=== PATIENT | male | born 1980 | race Caucasian/White ===

== ENCOUNTER 2016-11-14 01:38 | Inpatient (IN) ==
[2016-11-14] MEDS ORDERED: LACTATED RINGERS 1,000 ML IV STA (01:49)
[2016-11-14] MEDS ORDERED: DIPH/TET/ACEL PERT BOOSTER VACCINE 0.5 ML VIAL IM ONE (01:49)
[2016-11-14 01:55] LABS: Basophils % 0.6 % (0.0-0.8); Eosinophils # 0.2 10*3/uL (0.0-0.87); Hematocrit 42.8 VOL% (42.0-52.0); Hemoglobin 14.3 GM/DL (14.0-18.0); Immature Granulocytes % 0.2 %; Immature Granulocytes Absolute 0.01 #; Lymphocytes # 2.3 10*3/uL (1.4-4.0); Lymphocytes % 47.6 % (21.2-54.2); Mean Corpuscular HGB Conc 33.4 GM/DL (32-36); Mean Corpuscular Hemoglobin 31 PG (27-34); Mean Corpuscular Volume 92.2 FL (87-102); Mean Platelet Volume 9.7 FL (9.6-12.0); Monocytes # 0.3 10*3/uL (0.11-0.8); Monocytes % 5.6 % (1.7-12.7); Platelet Count 223 T/CUMM (130-400); Red Blood Count 4.64 MC/CUMM (3.8-5.5); Red Cell Distribution Width 11.9 % (9.3-17.3); White Blood Count 4.8 T/CUMM (4-12)
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
[2016-11-14 02:16] LABS: ABG Base Excess -9.1 MMOL/L (-2.5-2.5); ABG HCO3 17.3 MMOL/L (20-26); ABG Oxygen Saturation 99.8 % (95-100); ABG PCO2 35.2 MM HG (35-48); ABG PH 7.287 (7.35-7.45); ABG TCO2 14.9 MMOL/L (23-27)
[2016-11-14 02:24] LABS: Alanine Aminotransferase 266 U/L (16-61); Albumin 4.1 G/DL (3.4-5.0); Alkaline Phosphatase 46 U/L (45-117); Amylase 53 U/L (25-115); Aspartate Amino Transferase 307 U/L (0-37); Bilirubin,Total < 0.39 MG/DL (0.2-1.0); Blood Urea Nitrogen 13 MG/DL (7-18); Calcium 8.1 MG/DL (8.5-10.1); Glucose 145 MG/DL (74-106); Osmolality,Calculated 294.4 MOS/KG (273-304); Potassium 3.4 MMOL/L (3.5-5.1); Sodium 147 MMOL/L (136-145)
[2016-11-14 02:26] LABS: Lactic Acid 4.3 MMOL/L (0.4-2.0)
[2016-11-14 02:30] LABS: PT Patient Result 10.2 SECS; Partial Thromboplastin Time 21.5 SECS (0-40)
[2016-11-14] MEDS ORDERED: PROPOFOL 1,000 MG/100 ML BOTTLE IV SCH ×2 (02:30→04:00)
[2016-11-14] MEDS ORDERED: ceFAZolin 1,000 MG VIAL ONE (02:34)
[2016-11-14] MEDS ORDERED: SODIUM BICARBONATE 50 MEQ/50 ML VIAL IV ONE (02:39)
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
[2016-11-14] MEDS ORDERED: SODIUM CHLORIDE 0.9% 250 ML IV PRN (03:17)
[2016-11-14] MEDS ORDERED: MIDAZOLAM 2 MG/2 ML VIAL ONE (03:20)
[2016-11-14] MEDS ORDERED: fentaNYL 100 MCG/2 ML VIAL ONE (03:20)
[2016-11-14] MEDS ORDERED: SEVOFLURANE 1 UNIT/15 MINUTE INH ONE (03:20)
[2016-11-14] MEDS ORDERED: SODIUM CHLORIDE 0.9% 1,000 ML IV ONE (03:21)
[2016-11-14] MEDS: PROPOFOL 1,000 MG/100 ML BOTTLE IV SCH ×8 (03:58→22:24)
[2016-11-14] MEDS: LACTATED RINGERS 1,000 ML IV SCH ×3 (04:00→23:45)
[2016-11-14 04:40] LABS: Basophils % 0.1 % (0.0-0.8); Eosinophils % 0.3 % (0.00-10.9); Hematocrit 38.3 VOL% (42.0-52.0); Hematocrit 38.5 VOL% (42.0-52.0); Hemoglobin 13.1 GM/DL (14.0-18.0); Hemoglobin 13.2 GM/DL (14.0-18.0); Immature Granulocytes % 0.6 %; Immature Granulocytes Absolute 0.07 #; Lymphocytes # 1.1 10*3/uL (1.4-4.0); Lymphocytes % 8.7 % (21.2-54.2); Mean Corpuscular HGB Conc 34.2 GM/DL (32-36); Mean Corpuscular Hemoglobin 31 PG (27-34); Mean Corpuscular Volume 90.1 FL (87-102); Mean Platelet Volume 9.8 FL (9.6-12.0); Monocytes # 0.6 10*3/uL (0.11-0.8); Neutrophils # 10.7 10*3/uL (1.4-7.4); Neutrophils % 85.3 % (38.7-73.9); Platelet Count 138 T/CUMM (130-400); Red Blood Count 4.25 MC/CUMM (3.8-5.5); Red Cell Distribution Width 12.3 % (9.3-17.3); White Blood Count 12.5 T/CUMM (4-12)
[2016-11-14] MEDS: HYDROmorphone 2 MG/1 ML VIAL IV PRN ×5 (04:55→22:17)
[2016-11-14 04:57] LABS: INR 1.1; PT Patient Result 11.5 SECS
[2016-11-14 05:12] LABS: Lactic Acid 3.5 MMOL/L (0.4-2.0)
[2016-11-14 05:24] LABS: Bilirubin,Total 0.6 MG/DL (0.2-1.0); Calcium 6.6 MG/DL (8.5-10.1); Osmolality,Calculated 300.7 MOS/KG (273-304); Total Protein 4.8 G/DL (6.4-8.3)
[2016-11-14] MEDS ORDERED: LACTATED RINGERS 1,000 ML IV ONE (05:49)
[2016-11-14 05:51] LABS: ABG Base Excess -7.1 MMOL/L (-2.5-2.5); ABG HCO3 18.7 MMOL/L (20-26); ABG Oxygen Saturation 99.6 % (95-100); ABG PCO2 41.2 MM HG (35-48); ABG PH 7.281 (7.35-7.45); ABG TCO2 17.2 MMOL/L (23-27)
[2016-11-14 06:42] LABS: Apearance,Urine ND (Clear); Bilirubin,Urine ND mg/dL (Negative); Blood, Urine ND mg/dL (Negative); Glucose,Urine (UA) ND mg/dL (Negative); Ketones,Urine ND mg/dL (Negative); Protein,Urine ND MG/DL; Urine Color ND (Yellow)
[2016-11-14 06:50] LABS: Amorphous Crystals,Urine Many /HPF (Few); Apearance,Urine CLOUDY (Clear); Bilirubin,Urine Negative (Negative); Blood, Urine Negative (Negative); Glucose,Urine (UA) Negative (Negative); Ketones,Urine Negative (Negative); Nitrite,Urine Negative (Negative); Protein,Urine Negative; Urine Color Amber (Yellow); Urine Specific Gravity 1.019 (1.001-1.035); Urine Urobilinogen < 2.0 EU/DL (0.2-1.0)
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
[2016-11-14 09:10] LABS: Hematocrit 37.2 VOL% (42.0-52.0); Hemoglobin 12.5 GM/DL (14.0-18.0)
[2016-11-14] MEDS: PANTOPRAZOLE 40 MG VIAL IV SCH (09:19)
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
--- NOTE | 2016-11-14 11:46 | XRay Report ---
History: Shortness of breath Date: 11/14/2016 at 3:18 AM Study: Chest x-ray AP portable Comparison exam: 11/14/2016 at 1:41 AM The endotracheal tube is well-positioned. The cardiomediastinal silhouette is unchanged. The pulmonary vasculature is not engorged. The lungs are generally clear for shallow breath. There is no gross pleural effusion. The osseous structures are unchanged. Surgical drain is noted over the partially visualized upper central abdomen. Impression: The endotracheal tube is well-positioned. The lungs remain generally clear. PROCEDURE INTERPRETED AT [facility] DEPARTMENT OF RADIOLOGY Final Report Signed by: Dr. Vivienne Riley
[2016-11-14 15:18] LABS: Hematocrit 34.9 VOL% (42.0-52.0); Hemoglobin 12.1 GM/DL (14.0-18.0)
[2016-11-14] MEDS ORDERED: SUCCINYLCHOLINE 200 MG/10 ML VIAL ONE (16:46)
[2016-11-14] MEDS ORDERED: ROCURONIUM 100 MG/10 ML VIAL IV ONE (16:46)
[2016-11-14] MEDS ORDERED: LIDOCAINE 100 MG/5 ML SYRINGE ONE (16:46)
[2016-11-14] MEDS ORDERED: ETOMIDATE 20 MG/10 ML VIAL IV ONE (16:46)
[2016-11-14 20:57] LABS: Hematocrit 34.7 VOL% (42.0-52.0)
[2016-11-15] MEDS: PROPOFOL 1,000 MG/100 ML BOTTLE IV SCH ×4 (00:25→07:13)
[2016-11-15] MEDS: HYDROmorphone 2 MG/1 ML VIAL IV PRN ×4 (02:57→10:33)
[2016-11-15 04:05] LABS: ABG Base Excess 2.3 MMOL/L (-2.5-2.5); ABG HCO3 25.8 MMOL/L (20-26); ABG PCO2 36.4 MM HG (35-48); ABG PH 7.469 (7.35-7.45); ABG PO2 261.2 MM HG (80-95)
[2016-11-15 04:25] LABS: Basophils % 0.1 % (0.0-0.8); Eosinophils # 0.1 10*3/uL (0.0-0.87); Eosinophils % 1.3 % (0.00-10.9); Hematocrit 31.7 VOL% (42.0-52.0); Hemoglobin 11.1 GM/DL (14.0-18.0); Immature Granulocytes % 0.3 %; Immature Granulocytes Absolute 0.02 #; Lymphocytes # 0.7 10*3/uL (1.4-4.0); Mean Corpuscular Hemoglobin 31 PG (27-34); Mean Corpuscular Volume 87.6 FL (87-102); Mean Platelet Volume 10.1 FL (9.6-12.0); Monocytes # 0.8 10*3/uL (0.11-0.8); Monocytes % 9.9 % (1.7-12.7); Neutrophils # 6.3 10*3/uL (1.4-7.4); Neutrophils % 79.4 % (38.7-73.9); Platelet Count 121 T/CUMM (130-400); Red Blood Count 3.62 MC/CUMM (3.8-5.5); Red Cell Distribution Width 12.4 % (9.3-17.3); White Blood Count 7.9 T/CUMM (4-12)
[2016-11-15 04:47] LABS: Albumin 2.7 G/DL (3.4-5.0); Bilirubin,Total 1.1 MG/DL (0.2-1.0); Calcium 7.4 MG/DL (8.5-10.1); Osmolality,Calculated 291.4 MOS/KG (273-304); Potassium 3.7 MMOL/L (3.5-5.1); Total Protein 4.4 G/DL (6.4-8.3)
[2016-11-15] MEDS: LACTATED RINGERS 1,000 ML IV SCH ×4 (06:27→23:51)
--- NOTE | 2016-11-15 07:39 | XRay Report ---
Portable chest Date: 04/17/2017 Clinical history: Ventilator Comparison: 11/14/2016 Technique: Portable AP sitting chest Findings: The heart is smaller in size with endotracheal tube and nasogastric tube in satisfactory position. Progressive parenchymal findings at the right lung base with small right pleural effusion. Postoperative findings in the upper abdomen. Impression: Support devices in satisfactory position. Progressive atelectasis/infiltration/edema at the right lung base with small right pleural effusion. Postoperative findings in the abdomen. PROCEDURE INTERPRETED AT [facility] DEPARTMENT OF RADIOLOGY Final Report Signed by: Dr. Kenyatta Orantes
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
[2016-11-15] MEDS: PANTOPRAZOLE 40 MG VIAL IV SCH (08:28)
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
--- NOTE | 2016-11-15 09:24 | Anesthesia ---
Anesthesia Post OP - Post Ansesthetic Evaluation Patient seen in post op: Yes Resp: other (Vent) CV: within normal limits Mental: within normal limits Temp: within normal limits [id number]: within normal limits Nausea and Vomiting: within normal limits Pain: within normal limits
[2016-11-15] MEDS ORDERED: NALOXONE 0.4 MG/ML VIAL IV PRN (09:36)
[2016-11-15] MEDS: HYDROmorphone PCA 30 MG/30 ML SYRINGE IV SCH (13:07)
[2016-11-16] MEDS: LORazepam 2 MG/1 ML VIAL IV PRN (02:39)
[2016-11-16 03:51] LABS: Apearance,Urine CLEAR (Clear); Bilirubin,Urine Negative (Negative); Blood, Urine Small mg/dL (Negative); Glucose,Urine (UA) Negative (Negative); Hyaline Casts,Urine 1 /LPF (0-3); Ketones,Urine Negative (Negative); Mucus,Urine Occasional /LPF (Occasional); Nitrite,Urine Negative (Negative); Protein,Urine Negative; RBC,Urine 1 /HPF (0-4); Urine Color Yellow (Yellow); Urine Urobilinogen < 2.0 EU/DL (0.2-1.0); WBC,Urine 3 /HPF (0-6)
[2016-11-16 05:05] LABS: Basophils % 0.2 % (0.0-0.8); Eosinophils % 0.4 % (0.00-10.9); Hematocrit 27.4 VOL% (42.0-52.0); Hemoglobin 9.2 GM/DL (14.0-18.0); Immature Granulocytes % 0.5 %; Immature Granulocytes Absolute 0.05 #; Lymphocytes # 0.6 10*3/uL (1.4-4.0); Lymphocytes % 5.8 % (21.2-54.2); Mean Corpuscular HGB Conc 33.6 GM/DL (32-36); Mean Corpuscular Hemoglobin 31 PG (27-34); Mean Corpuscular Volume 92.3 FL (87-102); Mean Platelet Volume 10.5 FL (9.6-12.0); Monocytes % 9.1 % (1.7-12.7); Neutrophils # 9.3 10*3/uL (1.4-7.4); Platelet Count 107 T/CUMM (130-400); Red Blood Count 2.97 MC/CUMM (3.8-5.5); Red Cell Distribution Width 12.3 % (9.3-17.3); White Blood Count 11.1 T/CUMM (4-12)
[2016-11-16 05:33] LABS: Albumin 2.6 G/DL (3.4-5.0); Bilirubin,Total 1.5 MG/DL (0.2-1.0); Calcium 7.6 MG/DL (8.5-10.1); Osmolality,Calculated 285.8 MOS/KG (273-304); Potassium 3.8 MMOL/L (3.5-5.1); Total Protein 4.7 G/DL (6.4-8.3)
[2016-11-16] MEDS: LACTATED RINGERS 1,000 ML IV SCH (08:01)
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
[2016-11-16] MEDS: PANTOPRAZOLE 40 MG VIAL IV SCH (09:03)
--- NOTE | 2016-11-16 10:03 | Physician Query Form ---
CLICK EDIT DOCUMENT TO SELECT QUERY ANSWER --> OK --> SIGN Tatyana Arredondo RN Clinical Senior Sas Developer W) [phone] (f) [phone] [email or web address]: Make your selection(s) from the choices in EACH section by typing an "x" and enter comments in the comment section. Please use your independent medical judgment in providing your response. This request does not imply that any particular answer is desired or expected. CLINICAL INDICATORS: (Providers should not edit this section) Based on documentation in ER record of "Pt appears very pale. Patient's blood pressure was 82 over palpable. Patient was diaphoretic pale and shocky state. Patient got 2 units of O- blood with a mass transfusion protocol initiated for surgery". Pt. received fluid boluses of Lactated Ringer's. Blood pressure of 86/ 39. Please clarify which, if any, of the following is the etiology of the above symptoms and treatment rendered: ( ) Septic shock ( ) Hypovolemic shock ( ) Cardiogenic shock (x) Hemorrhagic shock ( ) Traumatic shock ( ) Shock due to, please specify etiology: ( ) Shock, unknown etiology ( ) Drug induced, please specify substance: ( ) Iatrogenic Hypotension ( ) Orthostatic Hypotension ( ) Hypotension, unknown etiology ( ) Other, please specify: ( ) Clinically unable to determine COMMENTS: Use of terms such as suspected, likely, or probable (associated with a specific diagnosis that is being evaluated, monitored, or treated as if it exists) are acceptable and can be restated in the discharge summary if not ruled out. MTDD
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
[2016-11-16 11:00] LABS: Basophils % 0.2 % (0.0-0.8); Eosinophils # 0.1 10*3/uL (0.0-0.87); Eosinophils % 1.3 % (0.00-10.9); Hematocrit 26.3 VOL% (42.0-52.0); Hemoglobin 8.8 GM/DL (14.0-18.0); Immature Granulocytes % 0.4 %; Immature Granulocytes Absolute 0.04 #; Lymphocytes # 0.8 10*3/uL (1.4-4.0); Lymphocytes % 8.9 % (21.2-54.2); Mean Corpuscular HGB Conc 33.5 GM/DL (32-36); Mean Corpuscular Hemoglobin 31 PG (27-34); Mean Corpuscular Volume 92.3 FL (87-102); Mean Platelet Volume 10.3 FL (9.6-12.0); Monocytes # 0.9 10*3/uL (0.11-0.8); Monocytes % 9.5 % (1.7-12.7); Neutrophils # 7.4 10*3/uL (1.4-7.4); Neutrophils % 79.7 % (38.7-73.9); Platelet Count 103 T/CUMM (130-400); Red Blood Count 2.85 MC/CUMM (3.8-5.5); White Blood Count 9.3 T/CUMM (4-12)
[2016-11-16] MEDS ORDERED: ONDANSETRON 4 MG/2 ML VIAL ONE (14:35)
[2016-11-16] MEDS ORDERED: ONDANSETRON 4 MG/2 ML VIAL IV PRN (14:41)
[2016-11-16 16:02] LABS: Hemoglobin 8.8 GM/DL (14.0-18.0)
[2016-11-16] MEDS ORDERED: PROMETHAZINE 25 MG/1 ML VIAL IM PRN (18:04)
[2016-11-16] MEDS: HYDROmorphone PCA 30 MG/30 ML SYRINGE IV SCH (18:49)
[2016-11-16] MEDS: DEXT 5% NACL 0.45% KCL 20 MEQ 20 MEQ/1,000 ML BAG IV SCH (18:50)
[2016-11-17 02:54] LABS: Basophils % 0.3 % (0.0-0.8); Eosinophils # 0.2 10*3/uL (0.0-0.87); Eosinophils % 2.8 % (0.00-10.9); Hematocrit 24.9 VOL% (42.0-52.0); Hemoglobin 8.2 GM/DL (14.0-18.0); Immature Granulocytes % 0.4 %; Immature Granulocytes Absolute 0.03 #; Lymphocytes # 0.7 10*3/uL (1.4-4.0); Lymphocytes % 9.4 % (21.2-54.2); Mean Corpuscular HGB Conc 32.9 GM/DL (32-36); Mean Corpuscular Hemoglobin 31 PG (27-34); Mean Corpuscular Volume 92.6 FL (87-102); Mean Platelet Volume 10.3 FL (9.6-12.0); Monocytes # 0.7 10*3/uL (0.11-0.8); Monocytes % 10.2 % (1.7-12.7); Neutrophils # 5.4 10*3/uL (1.4-7.4); Neutrophils % 76.9 % (38.7-73.9); Platelet Count 106 T/CUMM (130-400); Red Blood Count 2.69 MC/CUMM (3.8-5.5); Red Cell Distribution Width 11.9 % (9.3-17.3)
[2016-11-17] MEDS: DEXT 5% NACL 0.45% KCL 20 MEQ 20 MEQ/1,000 ML BAG IV SCH ×2 (02:55→08:00)
[2016-11-17 03:23] LABS: Albumin 2.4 G/DL (3.4-5.0); Bilirubin,Total 1.1 MG/DL (0.2-1.0); Calcium 7.6 MG/DL (8.5-10.1); Potassium 3.7 MMOL/L (3.5-5.1); Total Protein 4.7 G/DL (6.4-8.3)
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
[2016-11-17] MEDS: PANTOPRAZOLE 40 MG VIAL IV SCH (10:21)
[2016-11-17] MEDS: HYDROmorphone 2 MG/1 ML VIAL IV PRN ×2 (13:05→16:55)
[2016-11-17] MEDS: LORazepam 2 MG/1 ML VIAL IV PRN (18:34)
[2016-11-18 05:28] LABS: Basophils % 0.1 % (0.0-0.8); Eosinophils # 0.3 10*3/uL (0.0-0.87); Eosinophils % 3.8 % (0.00-10.9); Hematocrit 23.7 VOL% (42.0-52.0); Hemoglobin 7.9 GM/DL (14.0-18.0); Immature Granulocytes % 0.3 %; Immature Granulocytes Absolute 0.02 #; Lymphocytes # 0.6 10*3/uL (1.4-4.0); Lymphocytes % 8.7 % (21.2-54.2); Mean Corpuscular HGB Conc 33.3 GM/DL (32-36); Mean Corpuscular Hemoglobin 31 PG (27-34); Mean Corpuscular Volume 92.2 FL (87-102); Mean Platelet Volume 9.7 FL (9.6-12.0); Monocytes # 0.7 10*3/uL (0.11-0.8); Monocytes % 10.3 % (1.7-12.7); Neutrophils # 5.2 10*3/uL (1.4-7.4); Neutrophils % 76.8 % (38.7-73.9); Platelet Count 145 T/CUMM (130-400); Red Blood Count 2.57 MC/CUMM (3.8-5.5); Red Cell Distribution Width 11.9 % (9.3-17.3); White Blood Count 6.8 T/CUMM (4-12)
[2016-11-18] MEDS: HYDROmorphone 2 MG/1 ML VIAL IV PRN ×3 (05:36→18:39)
[2016-11-18 06:06] LABS: Albumin 2.5 G/DL (3.4-5.0); Bilirubin,Total 1.1 MG/DL (0.2-1.0); Osmolality,Calculated 285.8 MOS/KG (273-304); Potassium 3.8 MMOL/L (3.5-5.1); Total Protein 5.1 G/DL (6.4-8.3)
[2016-11-18] MEDS: PANTOPRAZOLE 40 MG VIAL IV SCH (08:04)
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
[2016-11-18] MEDS: FONDAPARINUX 2.5 MG/0.5 ML SYRINGE SUBCUT SCH (09:32)
[2016-11-18] MEDS: POLYETHYLENE GLYCOL POWDER 17 GM PACK PO SCH (09:32)
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
[2016-11-18] MEDS: LORazepam 2 MG/1 ML VIAL IV PRN (21:00)
[2016-11-19] MEDS: HYDROmorphone 2 MG/1 ML VIAL IV PRN ×6 (00:06→22:21)
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
[2016-11-19 08:45] LABS: Basophils % 0.1 % (0.0-0.8); Eosinophils # 0.3 10*3/uL (0.0-0.87); Eosinophils % 4.5 % (0.00-10.9); Hematocrit 24.2 VOL% (42.0-52.0); Hemoglobin 8.2 GM/DL (14.0-18.0); Immature Granulocytes % 0.4 %; Immature Granulocytes Absolute 0.03 #; Lymphocytes # 0.6 10*3/uL (1.4-4.0); Lymphocytes % 9.3 % (21.2-54.2); Mean Corpuscular HGB Conc 33.9 GM/DL (32-36); Mean Corpuscular Hemoglobin 30 PG (27-34); Mean Corpuscular Volume 89.6 FL (87-102); Mean Platelet Volume 9.1 FL (9.6-12.0); Monocytes # 0.9 10*3/uL (0.11-0.8); Monocytes % 13.2 % (1.7-12.7); Neutrophils # 4.9 10*3/uL (1.4-7.4); Neutrophils % 72.5 % (38.7-73.9); Platelet Count 173 T/CUMM (130-400); Red Cell Distribution Width 12.1 % (9.3-17.3); White Blood Count 6.7 T/CUMM (4-12)
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
[2016-11-19 09:15] LABS: Albumin 2.6 G/DL (3.4-5.0); Bilirubin,Total 1.7 MG/DL (0.2-1.0); Calcium 8.1 MG/DL (8.5-10.1); Osmolality,Calculated 276.5 MOS/KG (273-304); Potassium 3.7 MMOL/L (3.5-5.1); Total Protein 5.5 G/DL (6.4-8.3)
--- NOTE | 2016-11-19 09:45 | XRay Report ---
XR chest 2V Date: 11/19/2016 7:54 AM History: Cough, shortness of breath Comparison: 11/15/2016 Technique: PA and lateral chest Findings: The heart appears large in size on this expiratory film. Interval removal of the endotracheal tube and nasogastric tube. Progressive parenchymal findings at the lung bases with small pleural effusions. Gaseous distention of the bowel with postoperative findings and surgical drains. Stable mediastinum and osseous structures. Impression: Progressive bibasilar atelectasis/infiltration with small pleural effusions. Expiratory chest. Probable post operative ileus with surgical drains. PROCEDURE INTERPRETED AT [facility] DEPARTMENT OF RADIOLOGY Final Report Signed by: Dr. Kenyatta Orantes
[2016-11-19] MEDS: PANTOPRAZOLE 40 MG VIAL IV SCH (10:12)
[2016-11-19] MEDS: FONDAPARINUX 2.5 MG/0.5 ML SYRINGE SUBCUT SCH (10:17)
[2016-11-19] MEDS: POLYETHYLENE GLYCOL POWDER 17 GM PACK PO SCH (10:18)
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
[2016-11-19] MEDS: LEVOFLOXACIN 750 MG TABLET PO SCH (16:34)
[2016-11-20] MEDS: HYDROmorphone 2 MG/1 ML VIAL IV PRN ×3 (04:00→18:52)
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
[2016-11-20] MEDS: POLYETHYLENE GLYCOL POWDER 17 GM PACK PO SCH (09:50)
[2016-11-20] MEDS: PANTOPRAZOLE 40 MG VIAL IV SCH (09:51)
[2016-11-20] MEDS: LEVOFLOXACIN 750 MG TABLET PO SCH (09:51)
[2016-11-20] MEDS: FONDAPARINUX 2.5 MG/0.5 ML SYRINGE SUBCUT SCH (09:56)
--- NOTE | 2016-11-20 10:01 | XRay Report ---
History is follow-up atelectasis Comparison 11/19/2016 The heart is normal in size There remains minimal discoid atelectasis lung bases with slight improved aeration in the right base in the interval. No consolidative infiltrates seen Impression: Mild improvement with mild residual discoid atelectasis in the lung bases PROCEDURE INTERPRETED AT [facility] DEPARTMENT OF RADIOLOGY Final Report Signed by: Dr. Esme Antunez
--- NOTE | 2016-11-20 10:53 | Event Note ---
Patient is doing well. Tolerating regular diet. His breathing difficulties have resolved. This is being managed by pulmonary. He is afebrile and his vital signs are stable. Not had a bowel movement. His abdomen is soft and appropriately tender in the DESHAWN drains have minimal output. We'll give him a Dulcolax suppository to help with his bowel movement. Continue current care.
[2016-11-20] MEDS: BISACODYL 10 MG SUPP RECTAL SCH ×2 (19:03→21:39)
[2016-11-21] MEDS: HYDROmorphone 2 MG/1 ML VIAL IV PRN ×2 (00:02→12:36)
[2016-11-21 03:47] LABS: Basophils % 0.1 % (0.0-0.8); Eosinophils # 0.4 10*3/uL (0.0-0.87); Eosinophils % 5.4 % (0.00-10.9); Hematocrit 24.3 VOL% (42.0-52.0); Hemoglobin 8.2 GM/DL (14.0-18.0); Immature Granulocytes % 0.7 %; Immature Granulocytes Absolute 0.05 #; Lymphocytes # 0.8 10*3/uL (1.4-4.0); Lymphocytes % 11.9 % (21.2-54.2); Mean Corpuscular HGB Conc 33.7 GM/DL (32-36); Mean Corpuscular Hemoglobin 30 PG (27-34); Mean Platelet Volume 9.5 FL (9.6-12.0); Monocytes # 1.1 10*3/uL (0.11-0.8); Monocytes % 15.2 % (1.7-12.7); Neutrophils # 4.7 10*3/uL (1.4-7.4); Neutrophils % 66.7 % (38.7-73.9); Platelet Count 236 T/CUMM (130-400)
[2016-11-21 04:16] LABS: Calcium 8.3 MG/DL (8.5-10.1); Osmolality,Calculated 275.7 MOS/KG (273-304); Potassium 4.8 MMOL/L (3.5-5.1)
--- NOTE | 2016-11-21 08:31 | Event Note ---
Patient had a bowel movement yesterday. His shortness of breath had resolved yesterday but he appears a little short of breath today. Pulmonary is following. On exam his abdomen is soft and appropriately tender nondistended and the incision looks good with no sign of infection. DESHAWN drains with minimal serosanguineous fluid. Continue regular diet and current care.
--- NOTE | 2016-11-21 08:52 | XRay Report ---
Portable chest. Indication: Respiratory distress. Comparison: November 20, 2016. The heart is normal in size. Mild atelectasis at the lung bases. Interval improvement at the right base. The pulmonary vasculature is normal. The surgical changes in the abdomen. Impression: Improving basilar atelectasis. PROCEDURE INTERPRETED AT [facility] [place] DEPARTMENT OF RADIOLOGY Final Report Signed by: Dr. Junie Antunez
[2016-11-21] MEDS: LEVOFLOXACIN 750 MG TABLET PO SCH (10:32)
[2016-11-21] MEDS: POLYETHYLENE GLYCOL POWDER 17 GM PACK PO SCH (10:33)
[2016-11-21] MEDS: BISACODYL 10 MG SUPP RECTAL SCH ×2 (10:33→20:19)
[2016-11-21] MEDS: PANTOPRAZOLE 40 MG VIAL IV SCH (10:34)
[2016-11-21] MEDS: FONDAPARINUX 2.5 MG/0.5 ML SYRINGE SUBCUT SCH (10:37)
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
--- NOTE | 2016-11-22 07:41 | XRay Report ---
Referring Physician: Cj Perez Exam: XR chest 1V portable Date: November 22, 2016 at 5:57 AM Reason: Ventilator, respiratory failure Comparison: Chest one view portable November 21, 2016 Findings: The heart is stable in size. The lung are poorly expanded, and there are mild bibasilar opacities. These opacities are most consistent with atelectasis, but pneumonia is not excluded. No pneumothorax or definite pleural fluid is identified. The osseous structures appear stable. Surgical clips are noted at the abdomen, and a nonspecific catheter projects at the abdomen. Impression: There has been no significant change. PROCEDURE INTERPRETED AT [facility] DEPARTMENT OF RADIOLOGY Final Report Signed by: Dr. Talia Schroeder
[2016-11-22] MEDS: PANTOPRAZOLE 40 MG VIAL IV SCH (08:39)
[2016-11-22] MEDS: LEVOFLOXACIN 750 MG TABLET PO SCH (08:40)
[2016-11-22] MEDS: HYDROmorphone 2 MG/1 ML VIAL IV PRN ×3 (08:42→22:02)
[2016-11-22] MEDS: FONDAPARINUX 2.5 MG/0.5 ML SYRINGE SUBCUT SCH (08:46)
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
[2016-11-22] MEDS: POLYETHYLENE GLYCOL POWDER 17 GM PACK PO SCH (09:52)
[2016-11-22] MEDS: BISACODYL 10 MG SUPP RECTAL SCH ×2 (09:53→22:50)
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
[2016-11-23] MEDS: LEVOFLOXACIN 750 MG TABLET PO SCH (08:57)
[2016-11-23] MEDS: FONDAPARINUX 2.5 MG/0.5 ML SYRINGE SUBCUT SCH (08:59)
[2016-11-23] MEDS: POLYETHYLENE GLYCOL POWDER 17 GM PACK PO SCH (09:00)
[2016-11-23] MEDS: PANTOPRAZOLE 40 MG VIAL IV SCH (09:03)
[2016-11-23] MEDS: BISACODYL 10 MG SUPP RECTAL SCH (09:03)
[2016-11-23 12:39] VITALS: BP 124/65
== END 2016-11-23 12:00 | disposition home or self-care (01) | DRG 423 ==
LOC: EDUNIT# → EDBD → N.ED 01:38 → N.ICU 01:50 → N.3E 11-16 18:52
PROVIDERS: ADMIT Surgery; ATTEND Surgery

== ENCOUNTER 2017-02-06 21:24 | Inpatient (IN) ==
[2017-02-06] MEDS ORDERED: methylPREDNISolone SOD SUC 125 MG/2 ML VIAL IV STA (22:16)
[2017-02-06] MEDS ORDERED: KETOROLAC 30 MG/1 ML VIAL IV STA (22:16)
[2017-02-06] MEDS ORDERED: METHOCARBAMOL 1,000 MG/10 ML VIAL IV STA (22:16)
[2017-02-06] MEDS ORDERED: METHOCARBAMOL 1,000 MG/10 ML VIAL ONE (22:24)
[2017-02-06] MEDS ORDERED: SODIUM CHLORIDE 0.9% 100 ML IV ONE (22:24)
[2017-02-06] MEDS ORDERED: KETOROLAC 30 MG/1 ML VIAL ONE (22:24)
[2017-02-06] MEDS ORDERED: methylPREDNISolone SOD SUC 125 MG/2 ML VIAL ONE (22:25)
[2017-02-06 22:31] LABS: Basophils % 0.1 % (0.0-0.8); Eosinophils # 0.1 10*3/uL (0.0-0.87); Eosinophils % 0.6 % (0.00-10.9); Hematocrit 49.1 VOL% (42.0-52.0); Hemoglobin 16.8 GM/DL (14.0-18.0); Immature Granulocytes % 0.3 %; Immature Granulocytes Absolute 0.03 #; Lymphocytes # 0.7 10*3/uL (1.4-4.0); Lymphocytes % 5.7 % (21.2-54.2); Mean Corpuscular HGB Conc 34.2 GM/DL (32-36); Mean Corpuscular Hemoglobin 29 PG (27-34); Mean Corpuscular Volume 84.5 FL (87-102); Mean Platelet Volume 9.4 FL (9.6-12.0); Monocytes # 0.6 10*3/uL (0.11-0.8); Monocytes % 5.5 % (1.7-12.7); Neutrophils % 87.8 % (38.7-73.9); Platelet Count 192 T/CUMM (130-400); Red Blood Count 5.81 MC/CUMM (3.8-5.5); Red Cell Distribution Width 13.9 % (9.3-17.3); White Blood Count 11.4 T/CUMM (4-12)
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
[2017-02-06 22:43] LABS: Alanine Aminotransferase 736 U/L (16-61); Albumin 4.7 G/DL (3.4-5.0); Alkaline Phosphatase 97 U/L (45-117); Aspartate Amino Transferase 1031 U/L (0-37); Blood Urea Nitrogen 17 MG/DL (7-18); Calcium 9.9 MG/DL (8.5-10.1); Glucose 104 MG/DL (74-106); Osmolality,Calculated 280.4 MOS/KG (273-304); Sodium 140 MMOL/L (136-145); Total Protein 7.8 G/DL (6.4-8.3)
[2017-02-06 22:44] LABS: Amylase > 1300 U/L (25-115); Lipase > 30000.0 U/L (73-393)
[2017-02-06 23:11] LABS: Lactic Acid 1.5 MMOL/L (0.4-2.0)
[2017-02-06] MEDS ORDERED: SODIUM CHLORIDE 0.9% 2,000 ML IV STA (23:27)
[2017-02-06] MEDS ORDERED: METOCLOPRAMIDE 10 MG/2 ML VIAL IV STA (23:29)
[2017-02-06] MEDS ORDERED: HYDROmorphone 2 MG/1 ML VIAL IV STA (23:29)
[2017-02-06] MEDS ORDERED: ONDANSETRON 4 MG/2 ML VIAL IV STA (23:29)
[2017-02-06] MEDS ORDERED: PANTOPRAZOLE 40 MG VIAL IV STA (23:29)
[2017-02-06] MEDS ORDERED: HYDROmorphone 2 MG/1 ML VIAL ONE (23:38)
[2017-02-06] MEDS ORDERED: ONDANSETRON 4 MG/2 ML VIAL ONE (23:39)
[2017-02-06] MEDS ORDERED: METOCLOPRAMIDE 10 MG/2 ML VIAL ONE (23:39)
[2017-02-06] MEDS ORDERED: PANTOPRAZOLE 40 MG VIAL IV ONE (23:39)
[2017-02-07] MEDS ORDERED: METOCLOPRAMIDE 10 MG/2 ML VIAL ONE (00:04)
[2017-02-07] MEDS ORDERED: DICYCLOMINE 20 MG/2 ML AMP IM ONE (00:05)
[2017-02-07] MEDS ORDERED: ONDANSETRON 4 MG/2 ML VIAL IV PRN (02:13)
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
[2017-02-07] MEDS ORDERED: SODIUM CHLORIDE 0.9% 1,000 ML IV SCH (02:30)
[2017-02-07] MEDS: HYDROmorphone 2 MG/1 ML VIAL IM PRN ×3 (05:28→21:45)
[2017-02-07 05:32] LABS: Apearance,Urine CLEAR (Clear); Bilirubin,Urine Negative (Negative); Blood, Urine Negative (Negative); Glucose,Urine (UA) Negative (Negative); Ketones,Urine Negative (Negative); Mucus,Urine Occasional /LPF (Occasional); Nitrite,Urine Negative (Negative); Protein,Urine Negative; RBC,Urine 1 /HPF (0-4); Squamous Epithelial Cell,Urine Occasional /HPF (0-10); Urine Color Yellow (Yellow); Urine Urobilinogen < 2.0 EU/DL (0.2-1.0); WBC,Urine <1 /HPF (0-6)
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
[2017-02-07 06:21] LABS: Hematocrit 45.3 VOL% (42.0-52.0); Immature Granulocytes % 0.2 %; Immature Granulocytes Absolute 0.01 #; Lymphocytes # 0.3 10*3/uL (1.4-4.0); Lymphocytes % 5.1 % (21.2-54.2); Mean Corpuscular HGB Conc 33.1 GM/DL (32-36); Mean Corpuscular Hemoglobin 29 PG (27-34); Mean Corpuscular Volume 86.9 FL (87-102); Monocytes % 0.5 % (1.7-12.7); Neutrophils # 5.2 10*3/uL (1.4-7.4); Neutrophils % 94.2 % (38.7-73.9); Platelet Count 185 T/CUMM (130-400); Red Blood Count 5.21 MC/CUMM (3.8-5.5); Red Cell Distribution Width 13.9 % (9.3-17.3); White Blood Count 5.5 T/CUMM (4-12)
[2017-02-07 06:47] LABS: Band Neutrophils 1 % (0-10); Hypochromasia 1+; Lymphocytes 7 % (20-55); Ovalocytes Slight; Platelet Estimate Normal; Segmented Neutrophils 92 % (50-85); Total Cells Counted 100
[2017-02-07 06:48] LABS: Albumin 3.9 G/DL (3.4-5.0); Bilirubin,Total 1.3 MG/DL (0.2-1.0); Calcium 8.5 MG/DL (8.5-10.1); Magnesium 2.2 MG/DL (1.8-2.4); Osmolality,Calculated 282.4 MOS/KG (273-304); Potassium 4.9 MMOL/L (3.5-5.1); Total Protein 6.8 G/DL (6.4-8.3)
--- NOTE | 2017-02-07 07:28 | XRay Report ---
Referring Physician: Chandan Carrasco Exam: XR abdomen 2V Date: February 06, 2017 at 10:24 PM Reason: Generalized abdominal pain Comparison: CT abdomen and pelvis February 06, 2017 Findings: There is no evidence of bowel obstruction or free air. No renal calculi are identified. No acute osseous process is seen. There is a remote fracture of the right lateral 10th rib. Impression: There is no evidence of bowel obstruction. Please see the CT abdomen and pelvis study performed on the same day. PROCEDURE INTERPRETED AT [facility] DEPARTMENT OF RADIOLOGY Final Report Signed by: Dr. Talia Schroeder
--- NOTE | 2017-02-07 07:29 | XRay Report ---
Exam: Chest 2 views Date: February 06, 2017 at 10:24 PM Comparison: Chest one view portable November 22, 2016 Reason: Generalized abdominal pain Findings: The cardiac silhouette is normal in size. No focal consolidation, pneumothorax or pleural effusion is identified. No acute osseous process is seen, but there is a remote fracture of the right 10th rib. Impression: No acute cardiopulmonary process is identified. PROCEDURE INTERPRETED AT [facility] DEPARTMENT OF RADIOLOGY Final Report Signed by: Dr. Talia Schroeder
--- NOTE | 2017-02-07 08:46 | Hospitalist Progress Note ---
<Prashant Krishnamurthy - Last Filed: 02/07/17 08:44> Assessment and Plan (1) Acute pancreatitis Status: Acute Assessment and plan: Noted decrease in lipase today, lipase is down to 15,591 from 30,000 on yesterday, amylase greater than 1300 today. We will continue fluid replacement , pain management, and bowel rest as previously ordered. Current Visit: Yes Hospitalist: Subjective Interval history: Patient seen and examined; no significant overnight events. Patient reports that he feels slightly better, however continues to experience intermittent epigastric pain. Exam - Constitutional Vitals: Period Temp Pulse Resp BP Sys/Benz Pulse Ox Last 24 Hr 96.6 F-98.5 F 55-71 16-22 110-141/70-90 97-100 General appearance: normal weight, no acute distress - Head Head exam: Present: normal inspection, normocephalic - Eye Eye exam: Present: EOMI, conjunctival injection Pupils: Present: TRISTIAN, normal accommodation - ENT ENT exam: Present: normal exam, normal external ear exam, normal oropharynx - Neck Neck exam: Present: normal inspection. Absent: lymphadenopathy, meningismus, thyromegaly - Respiratory Respiratory exam: Absent: rales, rhonchi, stridor, wheezes - Cardiovascular Cardiovascular exam: Present: regular rate and rhythm. Absent: carotid bruit, diastolic murmur, gallop, JVD, rubs, systolic murmur - GI/Abdominal GI/Abdominal exam: Present: normal bowel sounds, tenderness (Epigastric area tender upon gentle palpation) - Extremities Exam Extremities exam: Present: normal inspection, normal capillary refill, full ROM. Absent: edema - Back Exam Back exam: Present: normal inspection - Neurological Exam Neurological exam: Present: alert, oriented X3, CN II-XII intact - Psychiatric Psychiatric exam: Present: normal affect, normal mood - Skin Skin exam: Present: normal color, warm, dry Results - Labs CBC & BMP: 02/07/17 05:49 02/07/17 05:49 Lab Results: I have reviewed the past 24 hour labs <Franklyn Nolan - Last Filed: 02/07/17 17:16> Hospitalist: Subjective Interval history: Patient has been seen and examined. I have reviewed the progress note by SYLVIA Krishnamurthy, and I agree with the documentation to include the assessment and plan. Patient feels better and is hungry. Active Issues: 1. Acute pancreatitis: unknown etiology; doing better; lipase improved from 30K to 16K. Continue supportive care, start with clears, and consult GI. 2. transaminitis, improved; given this and dilated CBD, will consult GI. Exam - Constitutional Vitals: Period Temp Pulse Resp BP Sys/Benz Pulse Ox Last 24 Hr 96.6 F-98.5 F 55-71 16-22 105-141/53-90 96-100 Results - Labs CBC & BMP: 02/07/17 05:49 02/07/17 05:49
[2017-02-07] MEDS: ENOXAPARIN 40 MG/0.4 ML SYRINGE SUBCUT SCH (09:20)
[2017-02-07] MEDS: AMINO ACIDS/DEXT/LYTES 4.25-5% 2,000 ML IV SCH (17:48)
[2017-02-08 06:35] LABS: Basophils % 0.1 % (0.0-0.8); Eosinophils % 0.5 % (0.00-10.9); Hematocrit 44.3 VOL% (42.0-52.0); Hemoglobin 14.8 GM/DL (14.0-18.0); Immature Granulocytes % 0.4 %; Immature Granulocytes Absolute 0.03 #; Lymphocytes # 0.9 10*3/uL (1.4-4.0); Lymphocytes % 11.2 % (21.2-54.2); Mean Corpuscular HGB Conc 33.4 GM/DL (32-36); Mean Corpuscular Hemoglobin 29 PG (27-34); Mean Corpuscular Volume 86.9 FL (87-102); Mean Platelet Volume 10.5 FL (9.6-12.0); Monocytes # 0.6 10*3/uL (0.11-0.8); Monocytes % 7.3 % (1.7-12.7); Neutrophils # 6.6 10*3/uL (1.4-7.4); Neutrophils % 80.5 % (38.7-73.9); Platelet Count 147 T/CUMM (130-400); Red Cell Distribution Width 14.1 % (9.3-17.3); White Blood Count 8.2 T/CUMM (4-12)
[2017-02-08 07:16] LABS: Albumin 3.7 G/DL (3.4-5.0); Bilirubin,Total 1.1 MG/DL (0.2-1.0); Calcium 8.7 MG/DL (8.5-10.1); Magnesium 2.2 MG/DL (1.8-2.4); Osmolality,Calculated 283.1 MOS/KG (273-304); Phosphorous 2.1 MG/DL (2.5-4.9); Potassium 4.3 MMOL/L (3.5-5.1); Total Protein 6.4 G/DL (6.4-8.3)
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
[2017-02-08] MEDS: HYDROmorphone 2 MG/1 ML VIAL IM PRN ×2 (07:42→11:35)
[2017-02-08] MEDS: ENOXAPARIN 40 MG/0.4 ML SYRINGE SUBCUT SCH (12:45)
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
--- NOTE | 2017-02-08 16:44 | Hospitalist Progress Note ---
Assessment and Plan (1) Acute pancreatitis Status: Acute Assessment and plan: improving; seen by GI; likely 2nd to ETOH use; lipase and LFTs are improving; he is tolerating a diet but wants to wait to continue oral intake before being discharged; as long as he remains stable overnight, he will be safe for discharge. Current Visit: Yes Hospitalist: Subjective Interval history: Patient states that he feels better but he wants to eat dinner and wants to make sure that he will be okay for discharge. He does not feel comfortable with being discharged today. Exam - Constitutional Vitals: Period Temp Pulse Resp BP Sys/Benz Pulse Ox Last 24 Hr 97.4 F-99.0 F 54-96 20-20 103-119/58-72 95-100 General appearance: no acute distress - Head Head exam: Present: normocephalic - Eye Eye exam: Present: EOMI Pupils: Present: TRISTIAN - Respiratory Respiratory exam: Present: clear to auscultation bilaterally - Cardiovascular Cardiovascular exam: Present: regular rate and rhythm - GI/Abdominal GI/Abdominal exam: Present: normal bowel sounds - Neurological Exam Neurological exam: Present: oriented X3 Results - Labs CBC & BMP: 02/08/17 05:58 02/08/17 05:58
[2017-02-08] MEDS: AMINO ACIDS/DEXT/LYTES 4.25-5% 2,000 ML IV SCH (17:36)
[2017-02-09 02:59] LABS: Basophils % 0.2 % (0.0-0.8); Eosinophils % 0.2 % (0.00-10.9); Hematocrit 41.4 VOL% (42.0-52.0); Hemoglobin 13.8 GM/DL (14.0-18.0); Immature Granulocytes % 0.3 %; Immature Granulocytes Absolute 0.03 #; Lymphocytes # 1.3 10*3/uL (1.4-4.0); Lymphocytes % 14.4 % (21.2-54.2); Mean Corpuscular HGB Conc 33.3 GM/DL (32-36); Mean Corpuscular Hemoglobin 29 PG (27-34); Mean Platelet Volume 10.4 FL (9.6-12.0); Monocytes # 0.9 10*3/uL (0.11-0.8); Monocytes % 10.2 % (1.7-12.7); Neutrophils # 6.6 10*3/uL (1.4-7.4); Neutrophils % 74.7 % (38.7-73.9); Platelet Count 134 T/CUMM (130-400); Red Blood Count 4.76 MC/CUMM (3.8-5.5); White Blood Count 8.8 T/CUMM (4-12)
[2017-02-09 03:24] LABS: Albumin 3.5 G/DL (3.4-5.0); Bilirubin,Total 1.1 MG/DL (0.2-1.0); Calcium 8.4 MG/DL (8.5-10.1); Osmolality,Calculated 283.1 MOS/KG (273-304); Potassium 3.8 MMOL/L (3.5-5.1); Total Protein 6.5 G/DL (6.4-8.3)
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
[2017-02-09] MEDS: HYDROmorphone 2 MG/1 ML VIAL IM PRN (10:02)
[2017-02-09] MEDS: ENOXAPARIN 40 MG/0.4 ML SYRINGE SUBCUT SCH (10:03)
[2017-02-09 11:09] VITALS: BP 109/60
[2017-02-09 13:26] LABS: Risk Ratio 1.79
== END 2017-02-09 12:45 | disposition home or self-care (01) | DRG 440 ==
LOC: N.ED 21:24 → SUATTDRO 02-07 02:08 → N.EDINP 02-07 02:08 → N.5E 02-07 02:41
PROVIDERS: ADMIT Internal Medicine Infectious Disease; ATTEND Internal Medicine